=== PATIENT | female | born 1945 | race Caucasian/White ===

== ENCOUNTER 2017-08-31 08:51 | Outpatient (CLI) | payer MEDICARE, SELFPAY ==
[2017-08-31 09:01] VITALS: BP 146/84; PULSE 79; RESP 18; TEMP 36.6; O2SAT 96
== END 2017-08-31 09:30 | disposition home or self-care (01) ==
LOC: INF 08:51
PROVIDERS: Visit Provider Family Medicine
DX: M85.89 Other specified disorders of bone density and structure, multiple sites (principal)
CPT/HCPCS: 96372; J0897

== ENCOUNTER 2018-03-02 08:40 | Outpatient (CLI) | payer MEDICARE, SELFPAY ==
[2018-03-02 09:30] VITALS: BP 167/99; PULSE 73; RESP 18; O2SAT 90
== END 2018-03-02 09:50 | disposition home or self-care (01) ==
LOC: INF 08:46
PROVIDERS: Visit Provider Family Medicine
DX: M85.89 Other specified disorders of bone density and structure, multiple sites (principal)
CPT/HCPCS: 96372; J0897

== ENCOUNTER 2018-10-30 10:38 | Outpatient (CLI) | payer MEDICARE, SELFPAY ==
[2018-10-30 10:56] VITALS: BP 159/90; PULSE 71; RESP 18; TEMP 36.5; O2SAT 98
[2018-10-30 11:30] VITALS: BP 146/81; PULSE 71; RESP 18; TEMP 36.6; O2SAT 97
== END 2018-10-30 11:30 | disposition home or self-care (01) ==
PROVIDERS: PCP Family Medicine; Visit Provider Family Medicine
DX: M85.89 Other specified disorders of bone density and structure, multiple sites (principal)
CPT/HCPCS: 96372; J0897

== ENCOUNTER 2019-05-09 15:54 | Outpatient (CLI) | payer MEDICARE, SELFPAY ==
[2019-05-09 16:00] VITALS: BP 154/58; PULSE 87; RESP 20; O2SAT 93
== END 2019-05-09 16:10 | disposition home or self-care (01) ==
LOC: INF 15:54
PROVIDERS: PCP Family Medicine; Visit Provider Family Medicine
DX: M85.89 Other specified disorders of bone density and structure, multiple sites (principal)
CPT/HCPCS: 96372; J0897

== ENCOUNTER 2019-11-20 08:51 | Outpatient (CLI) | payer MEDICARE, SELFPAY ==
[2019-11-20 08:58] VITALS: BP 159/86; PULSE 71; RESP 18; TEMP 36.6; O2SAT 92
== END 2019-11-20 09:28 | disposition home or self-care (01) ==
LOC: INF 08:51
PROVIDERS: Visit Provider Family Medicine
DX: M85.89 Other specified disorders of bone density and structure, multiple sites (principal)
CPT/HCPCS: 96372; J0897